=== PATIENT | female | born 1970 | race Caucasian/White ===

== ENCOUNTER 2021-07-01 15:19 | Emergency (ER) | payer MEDICAID, OTHER ==
[~2021-07-01] VITALS: Ht 157.5 cm; Wt 67.0 kg
[2021-07-01] MEDS ORDERED: PRAV40TA58 PO (15:35)
[2021-07-01] MEDS ORDERED: MELO-106 PO (15:35)
[2021-07-01] MEDS ORDERED: AMLO10TA80 PO (15:35)
[2021-07-01] MEDS ORDERED: ESCI-7 PO (15:35)
[2021-07-01 17:57] LABS: BASOPHILS % 0.2 % (0.0-2.0); EOSINOPHILS % 1.9 % (0.0-5.0); HEMATOCRIT. 37.8 % (36.0-48.0); HEMOGLOBIN. 13.2 g/dL (12.0-16.0); LYMPHOCYTES % 30.9 % (20.0-50.0); MEAN CORPUSCULAR HEMOGLOBIN 32.8 pg (28.0-32.0); MEAN CORPUSCULAR VOLUME 94.1 fL (81.0-99.0); MEAN PLATELET VOLUME 7.8 fl (7.4-10.4); MONOCYTES % 4.9 % (2.0-8.0); NEUTROPHILS % 62.1 % (40.0-76.0); PLATELET 216 x1000/uL (130-400); RED BLOOD CELL COUNT 4.02 mill/uL (4.2-5.4)
[2021-07-01 18:04] LABS: CHLORIDE 110 mEq/L (98-107)
[2021-07-01 18:10] LABS: PROTHROMBIN TIME 10.6 sec (9.6-11.0)
[2021-07-01 20:10] VITALS: BP 128/75
== END 2021-07-01 20:14 | disposition left against medical advice (07) ==
LOC: ER 15:19
DX: S01.81XA Laceration without foreign body of other part of head, initial encounter (principal); E78.00 Pure hypercholesterolemia, unspecified; Z98.890 Other specified postprocedural states; W18.30XA Fall on same level, unspecified, initial encounter; Y93.89 Activity, other specified; Y92.89 Other specified places as the place of occurrence of the external cause; Y99.8 Other external cause status; I10 Essential (primary) hypertension
CPT/HCPCS: 36415; 80053; 82962; 85025; 93005; 99284